=== PATIENT | male | born 1975 | race African-American/Black ===

== ENCOUNTER 2018-11-30 16:09 | Inpatient (IN) | payer OTHER ==
[2018-11-30 19:46] VITALS: BMI 33.3
--- NOTE | 2018-11-30 20:55 | HP ---
COWS - Scale Resting Pulse: 1= [place] 81-100 Sweatin=Flushed/Facial Moisture Restless Observation: 1= Difficult to Sit Still Pupil Size: 0= Normal to Room Light Bone or Joint Aches: 4=Acute Joint/Muscle Pain Runny Nose/ Eye Tearin= None GI Upset > 30mins: 2= Nausea/Diarrhea (diarrhea x 2) Tremor Observation: 2= Slight Tremor Visible Yawning Observation: 1= 1-2x During Session Anxiety or Irritability: 4=Extreme Anxiety Goose Flesh Skin: 0=Smooth Skin COWS Score: 17 CIWA Score - Admission Criteria OASAS Guidelines: Admission for Medically Managed Detox: Requires at least one of the followin. CIWA greater than 12 2. Seizures within the past 24 hours 3. Delirium tremens within the past 24 hours 4. Hallucinations within the past 24 hours 5. Acute intervention needed for co occurring medical disorder 6. Acute intervention needed for co occurring psychiatric disorder 7. Severe withdrawal that cannot be handled at a lower level of care (continued vomiting, continued diarrhea, abnormal vital signs) requiring intravenous medication and/or fluids 8. Admission ROS [facility] Chief Complaint: Heroin withdrawal symptoms Allergies/Adverse Reactions: Allergies Allergy/AdvReac Type Severity Reaction Status Date / Time shellfish derived AdvReac Severe severe Verified 11/30/18 19:32 History of Present Illness: 43 years old male with 3 years history of heroin dependence is seeking admission to detox. Patient has been in previous detox, last at [facility]. This is his first admission and first detox at [facility]. He has medical history of HIV +, asthma, depression and anxiety. He denies suicide attempt and suicidal ideation at this time. Exam Limitations: No Limitations - Ebola screening Have you traveled outside of the country in the last 21 days: No Have you had contact with anyone from an Ebola affected area: No Have you been sick,other than usual withdrawal symptoms: No Do you have a fever: No - Review of Systems Constitutional: Chills, Malaise, Night Sweats, Changes in sleep, Weakness, Unintentional Wgt. Loss (lost 23 pounds in a month) EENT: reports: Nose Congestion Respiratory: reports: No Symptoms reported Cardiac: reports: No Symptoms Reported GI: reports: Diarrhea, Poor Appetite, Poor Fluid Intake, Abdominal cramping : reports: No Symptoms Reported Musculoskeletal: reports: Back Pain, Joint Pain Integumentary: reports: Dryness, Flushing Neuro: reports: Tremors Endocrine: reports: No Symptoms Reported Hematology: reports: No Symptoms Reported Psychiatric: reports: Mood/Affect Appropiate, Anxious Other Systems: Reviewed and Negative Patient History - Patient Medical History Hx Anemia: No Hx Asthma: Yes (Albuterol and Advair) Hx Chronic Obstructive Pulmonary Disease (COPD): No Hx Cancer: No Hx Cardiac Disorders: No Hx Congestive Heart Failure: No Hx Hypertension: No Hx Hypercholesterolemia: No Hx Pacemaker: No HX Cerebrovascular Accident: No Hx Seizures: No Hx Dementia: No Hx Diabetes: No Hx Gastrointestinal Disorders: No Hx Liver Disease: No Hx Genitourinary Disorders: No Hx Sexually Transmitted Disorders: No Hx Renal Disease (ESRD): No Hx Thyroid Disease: No Hx Human Immunodeficiency Virus (HIV): Yes Hx Hepatitis C: No Hx Depression: Yes Hx Suicide Attempt: No (Denies suicidal ideation at ths time) Hx Bipolar Disorder: Yes (Buspar and Remeron) Hx Schizophrenia: No - Patient Surgical History Past Surgical History: Yes Hx Neurologic Surgery: No Hx Cataract Extraction: No Hx Cardiac Surgery: No Hx Lung Surgery: No Hx Abdominal Surgery: No Hx Appendectomy: No Hx Cholecystectomy: No Hx Genitourinary Surgery: No Hx Orthopedic Surgery: Yes (Left leg surgery) Anesthesia Reaction: No - PPD History Previous Implant?: No Documented Results: Positive w/o proof Implanted On Prior [facility] Admission?: No PPD to be Administered?: No - Reproductive History Patient is a Female of Child Bearing Age (11 -55 yrs old): No (Male) - Smoking Cessation Smoking history: Current every day smoker Have you smoked in the past 12 months: Yes Aproximately how many cigarettes per day: 20 Hx Chewing Tobacco Use: No Initiated information on smoking cessation: Yes 'Breaking Loose' booklet given: 11/30/18 - Substances abused Heroin Substance route: Inhalation Frequency: Daily Amount used: $30 Age of first use: 40 Date of last use: 11/28/18 Cocaine Substance route: Smoking Frequency: Daily Amount used: $200 Age of first use: 19 Date of last use: 11/28/18 Family Disease History - Family Disease History Family History: Denies Admission Physical Exam BHS - Vital Signs Vital Signs: Vital Signs - 24 hr 11/30/18 19:43 Temperature 98.9 F Pulse Rate 88 Respiratory 16 Rate Blood Pressure 144/77 - Physical General Appearance: Yes: Moderate Distress, Tremorous, Irritable, Sweating, Anxious HEENTM: Yes: Normal ENT Inspection, Normal Voice Respiratory: Yes: Lungs Clear, Normal Breath Sounds, No Respiratory Distress Neck: Yes: Supple Breast: Yes: Breast Exam Deferred Cardiology: Yes: Regular Rhythm, Regular Rate Abdominal: Yes: Normal Bowel Sounds Genitourinary: Yes: Within Normal Limits Back: Yes: Normal Inspection Musculoskeletal: Yes: Back pain, Muscle Pain Extremities: Yes: Tremors Neurological: Yes: Alert, Normal Mood/Affect Integumentary: Yes: Normal Color Lymphatic: Yes: Within Normal Limits - Diagnostic (1) Opioid dependence with withdrawal Current Visit: Yes Status: Acute (2) Nicotine dependence Current Visit: Yes Status: Chronic Qualifiers: Nicotine product type: cigarettes Substance use status: uncomplicated Qualified Code(s): F17.210 - Nicotine dependence, cigarettes, uncomplicated (3) HIV (human immunodeficiency virus infection) Current Visit: Yes Status: Acute (4) Depression Current Visit: Yes Status: Chronic Qualifiers: Depression Type: unspecified Qualified Code(s): F32.9 - Major depressive disorder, single episode, unspecified (5) Anxiety Current Visit: Yes Status: Chronic (6) Asthma Current Visit: Yes Status: Acute Qualifiers: Asthma severity: moderate Asthma persistence: persistent Asthma complication type: with acute exacerbation Qualified Code(s): J45.41 - Moderate persistent asthma with (acute) exacerbation Cleared for Admission S - Detox or Rehab [facility] Level of Care: Medically Managed Detox Regimen/Protocol: Methadone Inpatient Rehab Admission - Rehab Decision to Admit Inpatient rehab admission?: No
[2018-11-30] MEDS ORDERED: IBUPROFEN 400 MG TABLET (FP) PO PRN (21:12)
[2018-11-30] MEDS ORDERED: MENTHOL/PHENOL 1 EACH UD MM PRN (21:12)
[2018-11-30] MEDS ORDERED: MAG HYDROX/AL HYDROX/SIMETH 30 ML UNIT-DOSE CUP PO PRN (21:12)
[2018-11-30] MEDS ORDERED: NICOTINE POLACRILEX 2 MG GUM BUC PRN (21:12)
[2018-11-30] MEDS ORDERED: MELATONIN 5 MG TABLETS PO PRN (21:12)
[2018-11-30] MEDS ORDERED: cloNIDine HCL 0.1 MG TABLET PO PRN (21:12)
[2018-11-30] MEDS ORDERED: MAGNESIUM HYDROX 2400MG/30ML ORAL SUSPENSION 30 ML CUP PO PRN (21:12)
[2018-11-30] MEDS ORDERED: BISMUTH SUBSALICYLATE 524 MG/30 ML UD PO PRN (21:12)
[2018-11-30] MEDS ORDERED: MAGNESIUM CITRATE 300 ML BOTTLE PO PRN (21:12)
[2018-11-30] MEDS ORDERED: ACETAMINOPHEN 325 MG TABLET (FP) PO PRN ×2 (21:12)
[2018-11-30] MEDS ORDERED: ALBUTEROL SO4 8 GM HFA INHALER IH SCH (21:30)
[2018-11-30] MEDS: THIAMINE HCL 100 MG TABLET (FP) PO SCH (22:06)
[2018-11-30] MEDS: hydrOXYzine PAMOATE 25 MG CAPSULE (FP) PO PRN (22:07)
[2018-11-30] MEDS ORDERED: METHADONE HCL 10 MG TABLET (FOR DETOX USE ONLY) PO ONE (23:00)
--- NOTE | 2018-12-01 08:25 | EKG ---
Test Reason : Blood Pressure : / mmHG Vent. Rate : 069 BPM Atrial Rate : 069 BPM P-R Int : 150 ms QRS Dur : 090 ms QT Int : 374 ms P-R-T Axes : 033 051 025 degrees QTc Int : 400 ms NORMAL SINUS RHYTHM MODERATE VOLTAGE CRITERIA FOR LVH, MAY BE NORMAL VARIANT BORDERLINE ECG NO PREVIOUS ECGS AVAILABLE Confirmed by LUCY CAMPOVERDE MD ([id number]) on 12/01/2018 8:25:32 AM Referred By: Confirmed By:LUCY CAMPOVERDE MD
[2018-12-01] MEDS: PRENATAL VITAMINS W/ FOLIC ACID TABLET (FP) PO SCH (09:55)
[2018-12-01] MEDS: hydrOXYzine PAMOATE 25 MG CAPSULE (FP) PO PRN ×2 (09:55→22:09)
[2018-12-01] MEDS: NICOTINE 14 MG/24 HOURS TOPICAL PATCH TD SCH (09:56)
[2018-12-01] MEDS ORDERED: METHADONE HCL 10 MG TABLET (FOR DETOX USE ONLY) PO ONE (10:00)
--- NOTE | 2018-12-01 10:28 | PN ---
BHS COWS - Scale Resting Pulse: 1= [place] 81-100 Sweatin= Chills/Flushing Restless Observation: 1= Difficult to Sit Still Pupil Size: 1= Pupils >than Normal Bone or Joint Aches: 2= Severe Diffuse Aches Runny Nose/ Eye Tearin= Nasal Congestion GI Upset > 30mins: 1= Stomach Cramp Tremor Observation of Outstretched Hands: 1= Tremor [place], Not Seen Yawning Observation: 1= 1-2x During Session Anxiety or Irritability: 1=Feels Anxious/Irritable Goose Flesh Skin: 3=Piloe[place] COWS Score: 14 BHS Progress Note (SOAP) Subjective: doing ok with methadone detox protocol resting on bed tired tolerate food and fluid well Objective: 12/01/18 10:28 Vital Signs Temperature 98.1 F 12/01/18 10:00 Pulse Rate 90 12/01/18 10:00 Respiratory Rate 20 12/01/18 10:00 Blood Pressure 124/68 12/01/18 10:00 O2 Sat by Pulse Oximetry (%) 12/01/18 10:29 lab pending Assessment: 12/01/18 10:29 opiate withdrawal sx Plan: continue detox
[2018-12-01] MEDS ORDERED: ALBUTEROL SO4 0.083% IH SOL 2.5 MG/3 ML VIAL.NEB. NEB ONE (12:20)
[2018-12-01 12:45] LABS: HEMATOCRIT 38.4 % (35.4-49); HEMOGLOBIN 12.6 GM/dL (11.7-16.9); MCH 29.1 pg (25.7-33.7); MCHC 32.9 g/dl (32.0-35.9); MEAN CELL VOLUME 88.5 fl (80-96); MEAN PLT VOLUME 8.6 fl (7.5-11.1); PLATELET COUNT 219 K/MM3 (134-434); RBC 4.34 M/mm3 (4.00-5.60); RDW 14.6 % (11.9-15.9); WHITE BLOOD COUNT 8.5 K/mm3 (4.0-10.0)
[2018-12-01 12:48] LABS: ALBUMIN 3.1 g/dl (3.4-5.0); ALK PHOS 67 U/L (45-117); ANION GAP 7 MMOL/L (8-16); BILIRUBIN,TOTAL 0.6 mg/dL (0.2-1); BLOOD UREA NITROGEN 10 mg/dL (7-18); CHLORIDE 107 mmol/L (98-107); CO2 27 mmol/L (21-32); CREATININE 1.1 mg/dL (0.55-1.3); GLUCOSE,RANDOM 93 mg/dL (74-106); POTASSIUM 3.6 mmol/L (3.5-5.1); SGOT/AST 14 U/L (15-37); SGPT/ALT 28 U/L (13-61); SODIUM 141 mmol/L (136-145); TOT PROT 6.4 g/dl (6.4-8.2)
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
[2018-12-01] MEDS: THIAMINE HCL 100 MG TABLET (FP) PO SCH (22:09)
[2018-12-02] MEDS ORDERED: METHADONE HCL 10 MG TABLET (FOR DETOX USE ONLY) PO ONE (10:00)
[2018-12-02] MEDS: NICOTINE 14 MG/24 HOURS TOPICAL PATCH TD SCH (10:37)
[2018-12-02] MEDS: PRENATAL VITAMINS W/ FOLIC ACID TABLET (FP) PO SCH (10:37)
--- NOTE | 2018-12-02 11:14 | PN ---
BHS COWS - Scale Resting Pulse: 1= [place] 81-100 Sweatin= Chills/Flushing Restless Observation: 1= Difficult to Sit Still Pupil Size: 0= Normal to Room Light Bone or Joint Aches: 1= Mild Discomfort Runny Nose/ Eye Tearin= Nasal Congestion GI Upset > 30mins: 1= Stomach Cramp Tremor Observation of Outstretched Hands: 2= Slight Tremor Visible Yawning Observation: 1= 1-2x During Session Anxiety or Irritability: 1=Feels Anxious/Irritable Goose Flesh Skin: 0=Smooth Skin COWS Score: 10 S Progress Note (SOAP) Subjective: doing well with methadone detox regimen discuss medication assisted maintenance treatment program Objective: 12/02/18 11:14 Vital Signs Temperature 98.0 F 12/02/18 09:11 Pulse Rate 87 12/02/18 09:11 Respiratory Rate 20 12/02/18 09:11 Blood Pressure 103/63 12/02/18 09:11 O2 Sat by Pulse Oximetry (%) Laboratory Last Values WBC 8.5 K/mm3 (4.0-10.0) 12/01/18 07:30 RBC 4.34 M/mm3 (4.00-5.60) 12/01/18 07:30 Hgb 12.6 GM/dL (11.7-16.9) 12/01/18 07:30 Hct 38.4 % (35.4-49) 12/01/18 07:30 MCV 88.5 fl (80-96) 12/01/18 07:30 MCH 29.1 pg (25.7-33.7) 12/01/18 07:30 MCHC 32.9 g/dl (32.0-35.9) 12/01/18 07:30 RDW 14.6 % (11.9-15.9) 12/01/18 07:30 Plt Count 219 K/MM3 (134-434) 12/01/18 07:30 MPV 8.6 fl (7.5-11.1) 12/01/18 07:30 Sodium 141 mmol/L (136-145) 12/01/18 07:30 Potassium 3.6 mmol/L (3.5-5.1) 12/01/18 07:30 Chloride 107 mmol/L (98-107) 12/01/18 07:30 Carbon Dioxide 27 mmol/L (21-32) 12/01/18 07:30 Anion Gap 7 MMOL/L (8-16) L 12/01/18 07:30 BUN 10 mg/dL (7-18) 12/01/18 07:30 Creatinine 1.1 mg/dL (0.55-1.3) 12/01/18 07:30 Creat Clearance w eGFR 73.06 (>60) 12/01/18 07:30 Random Glucose 93 mg/dL (74-106) 12/01/18 07:30 Calcium 9.0 mg/dL (8.5-10.1) 12/01/18 07:30 Total Bilirubin 0.6 mg/dL (0.2-1) 12/01/18 07:30 AST 14 U/L (15-37) L 12/01/18 07:30 ALT 28 U/L (13-61) 12/01/18 07:30 Alkaline Phosphatase 67 U/L (45-117) 12/01/18 07:30 Total Protein 6.4 g/dl (6.4-8.2) 12/01/18 07:30 Albumin 3.1 g/dl (3.4-5.0) L 12/01/18 07:30 RPR Titer Nonreactive (NONREACTIVE) 12/01/18 07:30 lab noted Assessment: 12/02/18 11:14 opiate withdrawal sx Plan: continue detox
[2018-12-02] MEDS: hydrOXYzine PAMOATE 25 MG CAPSULE (FP) PO PRN (22:12)
[2018-12-02] MEDS: THIAMINE HCL 100 MG TABLET (FP) PO SCH (22:13)
[2018-12-02] MEDS: METHOCARBAMOL 500 MG TABLET PO PRN (22:13)
[2018-12-03] MEDS ORDERED: METHADONE HCL 10 MG TABLET (FOR DETOX USE ONLY) PO ONE (10:00)
[2018-12-03] MEDS: PRENATAL VITAMINS W/ FOLIC ACID TABLET (FP) PO SCH (10:40)
[2018-12-03] MEDS: METHOCARBAMOL 500 MG TABLET PO PRN (10:40)
[2018-12-03] MEDS: NICOTINE 14 MG/24 HOURS TOPICAL PATCH TD SCH (10:40)
--- NOTE | 2018-12-03 16:12 | PN ---
BHS COWS - Scale Resting Pulse: 2= [place] 101-120 Sweatin= Chills/Flushing Restless Observation: 1= Difficult to Sit Still Pupil Size: 0= Normal to Room Light Bone or Joint Aches: 1= Mild Discomfort Runny Nose/ Eye Tearin= None GI Upset > 30mins: 0= None Tremor Observation of Outstretched Hands: 0= None Yawning Observation: 1= 1-2x During Session Anxiety or Irritability: 2=Irritable/Anxious Goose Flesh Skin: 0=Smooth Skin COWS Score: 8 BHS Progress Note (SOAP) Subjective: Body Aches, Sweating, Interrupted Sleep. Patient reports that Withdrawal / Detox Symptoms are subsiding in severity in comparison to time in which he was admitted to Detox Unit. Objective: PATIENT A & O X 3, OBSERVED AMBULATING ON UNIT UNASSISTED. IN NO ACUTE DISTRESS. 12/03/18 16:13 Vital Signs Temperature 97.1 F L 12/03/18 13:49 Pulse Rate 105 H 12/03/18 13:49 Respiratory Rate 18 12/03/18 13:49 Blood Pressure 121/73 12/03/18 13:49 O2 Sat by Pulse Oximetry (%) Laboratory Tests 12/01/18 12/01/18 12/01/18 07:30 07:30 07:30 WBC 8.5 RBC 4.34 Hgb 12.6 Hct 38.4 MCV 88.5 MCH 29.1 MCHC 32.9 RDW 14.6 Plt Count 219 MPV 8.6 Sodium 141 Potassium 3.6 Chloride 107 Carbon Dioxide 27 Anion Gap 7 L BUN 10 Creatinine 1.1 Creat Clearance w eGFR 73.06 Random Glucose 93 Calcium 9.0 Total Bilirubin 0.6 AST 14 L ALT 28 Alkaline Phosphatase 67 Total Protein 6.4 Albumin 3.1 L RPR Titer Nonreactive LABS NOTED. Assessment: 12/03/18 16:14 WITHDRAWAL SYMPTOMS. Plan: CONTINUE DETOX. PATIENT SCHEDULED FOR D/C TOMORROW.
[2018-12-03] MEDS: hydrOXYzine PAMOATE 25 MG CAPSULE (FP) PO PRN (22:22)
[2018-12-03] MEDS: THIAMINE HCL 100 MG TABLET (FP) PO SCH (22:22)
[2018-12-04] MEDS ORDERED: METHADONE HCL 5 MG TABLET (FOR DETOX USE ONLY) PO ONE (06:00)
[2018-12-04] MEDS: NICOTINE 14 MG/24 HOURS TOPICAL PATCH TD SCH (10:49)
[2018-12-04] MEDS: PRENATAL VITAMINS W/ FOLIC ACID TABLET (FP) PO SCH (10:49)
[2018-12-04 11:10] VITALS: BP 112/52; PULSE 109; TEMP 98.4
--- NOTE | 2018-12-04 13:59 | DS ---
[facility] Detox Discharge Summary Admission Date: 11/30/18 Discharge Date: 12/04/18 - History Present History: Cocaine Dependence, Opioid Dependence Additional Comments: PATIENT GOING TO [facility] ([place]) FOR AFTERCARE. PATIENT WAS DISCHARGED FROM DETOX UNIT TO BE TAKEN OVER TO REHAB UNIT IN STABLE MEDICAL CONDITION Pertinent Past History: Asthma, Nicotine Dependence, H.I.V., Depression, Anxiety, Bipolar Disorder. - Physical Exam Results Vital Signs: Vital Signs Temperature 98.4 F 12/04/18 11:09 Pulse Rate 109 H 12/04/18 11:09 Respiratory Rate 20 12/04/18 11:09 Blood Pressure 112/52 L 12/04/18 11:09 O2 Sat by Pulse Oximetry (%) Pertinent Admission Physical Exam Findings: WITHDRAWAL SYMPTOMS. Laboratory Tests 12/01/18 12/01/18 12/01/18 07:30 07:30 07:30 WBC 8.5 RBC 4.34 Hgb 12.6 Hct 38.4 MCV 88.5 MCH 29.1 MCHC 32.9 RDW 14.6 Plt Count 219 MPV 8.6 Sodium 141 Potassium 3.6 Chloride 107 Carbon Dioxide 27 Anion Gap 7 L BUN 10 Creatinine 1.1 Creat Clearance w eGFR 73.06 Random Glucose 93 Calcium 9.0 Total Bilirubin 0.6 AST 14 L ALT 28 Alkaline Phosphatase 67 Total Protein 6.4 Albumin 3.1 L RPR Titer Nonreactive LABS NOTED. - Treatment Hospital Course: Detox Protocol Followed, Detoxed Safely, Responded well, Discharged Condition Good, Rehab Referral Accepted Patient has Accepted a Rehab Referral to: [facility] ([place], [place]). - Medication Discharge Medications: Ambulatory Orders Albuterol Sulfate [Proair Hfa] 2 inh IH PRN 11/30/18 Buspirone HCl [Buspar -] 30 mg PO BID 11/30/18 Genvoya (Non-Formulary) 1 each PO DAILY 11/30/18 Mirtazapine [Remeron -] 30 mg PO HS 11/30/18 - Diagnosis (1) Asthma Status: Acute Qualifiers: Asthma severity: moderate Asthma persistence: persistent Asthma complication type: with acute exacerbation Qualified Code(s): J45.41 - Moderate persistent asthma with (acute) exacerbation (2) HIV (human immunodeficiency virus infection) Status: Chronic Qualifiers: HIV symptom status: unspecified Qualified Code(s): B20 - Human immunodeficiency virus [HIV] disease (3) Opioid dependence with withdrawal Status: Acute (4) Anxiety Status: Chronic (5) Depression Status: Chronic Qualifiers: Depression Type: unspecified Qualified Code(s): F32.9 - Major depressive disorder, single episode, unspecified (6) Nicotine dependence Status: Chronic Qualifiers: Nicotine product type: cigarettes Substance use status: uncomplicated Qualified Code(s): F17.210 - Nicotine dependence, cigarettes, uncomplicated (7) Cocaine dependence Status: Chronic Qualifiers: Substance use status: uncomplicated Qualified Code(s): F14.20 - Cocaine dependence, uncomplicated (8) History of anxiety disorder Status: Chronic - AMA Did Patient Leave Against Medical Advice: No
== END 2018-12-04 12:25 | disposition other institution (70) | DRG 774 ==
LOC: YASAS 16:09 → Y3N 21:36
PROVIDERS: ADMIT Surgery; ATTEND Surgery
PROC: HZ2ZZZZ Detoxification Services for Substance Abuse Treatment (ICD-10-PCS; principal; 2018-11-30)
DX: F10.230 Alcohol dependence with withdrawal, uncomplicated (principal); F14.20 Cocaine dependence, uncomplicated; F17.210 Nicotine dependence, cigarettes, uncomplicated; F41.9 Anxiety disorder, unspecified; F32.9 Major depressive disorder, single episode, unspecified; J45.41 Moderate persistent asthma with (acute) exacerbation; Z21 Asymptomatic human immunodeficiency virus [HIV] infection status; Z91.013 Allergy to seafood; Z59.0 Homelessness
CPT/HCPCS: 36415; 71046-TC-FY; 80053; 85027; 86593; 93005; 93010

== ENCOUNTER 2018-12-04 09:29 | Inpatient (IN) | payer OTHER ==
[2018-12-04] MEDS ORDERED: MAGNESIUM HYDROX 2400MG/30ML ORAL SUSPENSION 30 ML CUP PO PRN (14:01)
[2018-12-04] MEDS ORDERED: P-EPHED 60MG/TRIPROLIDI 2.5MG TABLET PO PRN (14:01)
[2018-12-04] MEDS ORDERED: MAGNESIUM CITRATE 300 ML BOTTLE PO PRN (14:01)
[2018-12-04] MEDS ORDERED: MAG HYDROX/AL HYDROX/SIMETH 30 ML UNIT-DOSE CUP PO PRN (14:01)
[2018-12-04] MEDS ORDERED: IBUPROFEN 400 MG TABLET (FP) PO PRN (14:01)
[2018-12-04] MEDS ORDERED: LOPERAMIDE HCL 2 MG CAPSULE PO PRN (14:01)
[2018-12-04] MEDS ORDERED: guaiFENesin 200 MG/10 ML 10 ML UNIT-DOSE CUPS PO PRN (14:01)
[2018-12-04] MEDS ORDERED: ACETAMINOPHEN 325 MG TABLET (FP) PO PRN (14:01)
[2018-12-04] MEDS ORDERED: MENTHOL/PHENOL 1 EACH UD MM PRN (14:01)
[2018-12-04] MEDS ORDERED: NICOTINE POLACRILEX 2 MG GUM BUC PRN (14:01)
--- NOTE | 2018-12-04 14:01 | HP ---
[facility] Rehab Assess/Revision - Admission History Admitted to Rehab from: [facility] Date of Admission to Rehab: 12/04/2018 - Vital signs Vital Signs: Vital Signs Period Temp Pulse Resp BP Sys/Locke Pulse Ox Last 24 Hr 97.8 F 95 18 124/69 - Findings Detox History & Physical reviewed: Yes Concur with findings: Yes Comments/Additional Findings: PATIENT'S MEDICAL / MEDICATION HISTORY REVIEWED PRIOR TO DISCHARGE FROM DETOX UNIT. PATIENT WAS DISCHARGED FROM DETOX UNIT TO BE TAKEN OVER TO REHAB UNIT IN STABLE MEDICAL CONDITION. Inpatient Rehab Admission - Rehab Decision to Admit Inpatient rehab admission?: Yes - Initial Determination Are CD services needed?: Yes Free of communicable disease: Yes Not in need of hospitalization: Yes - Rehab Admission Criteria Previous failed treatment: Yes Poor recovery environment: Yes Comorbidities: Yes Lacks judgement: No Patient is meeting Inpatient Rehab admission criteria:: Yes
[2018-12-04] MEDS: THIAMINE HCL 100 MG TABLET (FP) PO SCH (21:33)
[2018-12-05] MEDS: PRENATAL VITAMINS W/ FOLIC ACID TABLET (FP) PO SCH (09:50)
[2018-12-05] MEDS: NICOTINE 14 MG/24 HOURS TOPICAL PATCH TD SCH (09:50)
[2018-12-05] MEDS: ALBUTEROL SO4 8 GM HFA INHALER IH PRN (13:05)
[2018-12-05] MEDS: THIAMINE HCL 100 MG TABLET (FP) PO SCH (22:19)
[2018-12-06] MEDS: NICOTINE 14 MG/24 HOURS TOPICAL PATCH TD SCH (10:25)
[2018-12-06] MEDS: PRENATAL VITAMINS W/ FOLIC ACID TABLET (FP) PO SCH (10:25)
[2018-12-06] MEDS: ALBUTEROL SO4 8 GM HFA INHALER IH PRN (12:32)
[2018-12-06] MEDS ORDERED: PT OWN MED DRAWER 7, Y5N ONE (15:54)
--- NOTE | 2018-12-06 16:04 | PN ---
[facility] Progress Note Note: PATIENT C/O FEELING ANXIOUS, NAUSEOUS AND RESTLESSNESS. PATIENT DENIES VOMITING AND DIARRHEA. PMH INCLUDES HIV+, ASTHMA AND ANXIETY/DEPRESSION. PATIENT REPORTS COMPLIANCE WITH ALL MEDICATIONS AND DOES NOT UNDERSTAND WHY HIS MEDICATION HAS NOT BEEN ORDERED. PATIENT REPORTED PHARMAC[facility] AND MEDICATION THEREFORE NOT VERIFIED. Vital Signs Temperature 99.3 F 12/06/18 07:18 Pulse Rate 89 12/06/18 07:18 Respiratory Rate 18 12/06/18 07:18 Blood Pressure 131/67 12/06/18 07:18 O2 Sat by Pulse Oximetry (%) PE: ALERT AND ORIENTED X 3 SKIN WARM AND DRY +PERRLA, EOMS INTACT BL GI SOFT, BS+,NT EXT FULL ROM, AMB AD [place] ANXIOUS A/P: HX OF ANXIETY/DEPRESSION NAUSEA HIV + PHARMACY [facility] CALLED AT 718 CONFIRMED ALL MEDICATIONS: GENVOYA ONE TAB DAILY, DEPAKOTE 750MG HS, REMERON 30MG HS AND BUSPAR 30MG BID. PHARMACY REPORTS PATIENT RECEIVES MEDICATION MONTHLY. WILL ORDER GENVOYA ONE TAB DAILY ZOFRAN FOR NAUSEA VPA LEVEL IN AM REMERON 30MG HS BUSPAR 30MG ONCE UNTIL PSYCH EVALUATION IN AM [facility]
[2018-12-06] MEDS: ONDANSETRON *ODT* 4 MG TABLET SL PRN (18:07)
--- NOTE | 2018-12-06 18:51 | PN ---
[facility] Progress [facility] Note: Patient pharmacy states send HIV meds. Patient did not bring in current HIV meds and there is no evidence that indicates compliance. Will hold HIV meds and have patient f/u w/ PCP at discharge .
[2018-12-06] MEDS: THIAMINE HCL 100 MG TABLET (FP) PO SCH (21:26)
[2018-12-06] MEDS: MIRTAZAPINE 30 MG TABLET (FP) PO SCH (21:27)
[2018-12-06] MEDS: MELATONIN 5 MG TABLETS PO PRN (21:28)
[2018-12-07] MEDS ORDERED: ELVITEG/COB/EMTRI/TENOFO (STRIBILD) TABLET -NF PO SCH (10:00)
[2018-12-07] MEDS: PRENATAL VITAMINS W/ FOLIC ACID TABLET (FP) PO SCH (10:31)
[2018-12-07] MEDS: NICOTINE 14 MG/24 HOURS TOPICAL PATCH TD SCH (10:31)
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
[2018-12-07] MEDS: ONDANSETRON *ODT* 4 MG TABLET SL PRN (16:25)
[2018-12-07] MEDS: THIAMINE HCL 100 MG TABLET (FP) PO SCH (21:22)
[2018-12-07] MEDS: DIVALPROEX 250 MG, DIVALPROEX 500 MG PO SCH (21:23)
[2018-12-07] MEDS: MIRTAZAPINE 30 MG TABLET (FP) PO SCH (21:23)
[2018-12-07] MEDS ORDERED: DIVALPROEX SODIUM 250 MG TABLET E.C. PO SCH (22:00)
[2018-12-07] MEDS: ALBUTEROL SO4 8 GM HFA INHALER IH PRN (23:27)
[2018-12-08] MEDS: PRENATAL VITAMINS W/ FOLIC ACID TABLET (FP) PO SCH (09:53)
[2018-12-08] MEDS: NICOTINE 14 MG/24 HOURS TOPICAL PATCH TD SCH (09:54)
[2018-12-08] MEDS: ELVITEG/COB/EMTRI/TENOFO (STRIBILD) TABLET -NF PO SCH (09:55)
[2018-12-08] MEDS ORDERED: PT OWN MED DRAWER 7, Y5N ONE (09:56)
[2018-12-08] MEDS: ALBUTEROL SO4 8 GM HFA INHALER IH PRN ×2 (16:54→23:12)
[2018-12-08] MEDS ORDERED: DIVALPROEX SODIUM 500 MG TABLET E.C. ONE (19:25)
[2018-12-08] MEDS ORDERED: DIVALPROEX SODIUM 250 MG TABLET E.C. ONE (19:25)
[2018-12-08] MEDS: DIVALPROEX 250 MG, DIVALPROEX 500 MG PO SCH (21:44)
[2018-12-08] MEDS: THIAMINE HCL 100 MG TABLET (FP) PO SCH (21:44)
[2018-12-08] MEDS: MIRTAZAPINE 30 MG TABLET (FP) PO SCH (21:44)
[2018-12-09] MEDS: NICOTINE 14 MG/24 HOURS TOPICAL PATCH TD SCH (10:17)
[2018-12-09] MEDS: PRENATAL VITAMINS W/ FOLIC ACID TABLET (FP) PO SCH (10:17)
[2018-12-09] MEDS: ELVITEG/COB/EMTRI/TENOFO (STRIBILD) TABLET -NF PO SCH (10:18)
[2018-12-09] MEDS ORDERED: PT OWN MED DRAWER 7, Y5N ONE ×2 (10:19→14:19)
[2018-12-09] MEDS ORDERED: DIVALPROEX SODIUM 500 MG TABLET E.C. ONE (20:31)
[2018-12-09] MEDS ORDERED: DIVALPROEX SODIUM 250 MG TABLET E.C. ONE (20:32)
[2018-12-09] MEDS: DIVALPROEX 250 MG, DIVALPROEX 500 MG PO SCH (21:03)
[2018-12-09] MEDS: MIRTAZAPINE 30 MG TABLET (FP) PO SCH (21:03)
[2018-12-09] MEDS: THIAMINE HCL 100 MG TABLET (FP) PO SCH (21:03)
[2018-12-09] MEDS: ALBUTEROL SO4 8 GM HFA INHALER IH PRN (21:29)
[2018-12-09] MEDS: MELATONIN 5 MG TABLETS PO PRN (23:12)
[2018-12-10 07:12] VITALS: BP 114/81; PULSE 99; TEMP 98.3
[2018-12-10] MEDS ORDERED: PT OWN MED DRAWER 7, Y5N ONE ×2 (08:44→10:30)
[2018-12-10] MEDS: ELVITEG/COB/EMTRI/TENOFO (STRIBILD) TABLET -NF PO SCH (10:09)
[2018-12-10] MEDS: PRENATAL VITAMINS W/ FOLIC ACID TABLET (FP) PO SCH (10:09)
[2018-12-10] MEDS: ALBUTEROL SO4 8 GM HFA INHALER IH PRN (10:10)
[2018-12-10] MEDS: NICOTINE 14 MG/24 HOURS TOPICAL PATCH TD SCH (10:10)
--- NOTE | 2018-12-10 10:32 | PN ---
[facility] Progress Note Note: Notified by nursing staff Patient requested to sign out AMA. Patient states he does not feel this rehab program is a good fit for him and would like to try [facility]. Patient encouraged to stay in treatment and asked if there was anything we could adjust or accommodate to help him stay in treatment but patient refused. Patient medically stable at this time and denies SI/HI. Patient state he has psychiatric medications in belongings but needs refill of HIV medication. Patient encouraged to continue with group meetings to prevent relapse and to follow up with PCP to continue medical management. Vital Signs Temperature 98.3 F 12/10/18 07:11 Pulse Rate 99 H 12/10/18 07:11 Respiratory Rate 20 12/10/18 07:11 Blood Pressure 114/81 12/10/18 07:11 O2 Sat by Pulse Oximetry (%) Vital Signs Temperature 98.3 F 12/10/18 07:11 Pulse Rate 99 H 12/10/18 07:11 Respiratory Rate 20 12/10/18 07:11 Blood Pressure 114/81 12/10/18 07:11 O2 Sat by Pulse Oximetry (%) Laboratory Tests 12/07/18 09:00 Valproic Acid 5.4 L Home Medications Medication Instructions Recorded Albuterol Sulfate [Proair Hfa] 2 inh IH PRN 11/30/18 Buspirone HCl [Buspar -] 30 mg PO BID 11/30/18 Genvoya (Non-Formulary) 1 each PO DAILY 11/30/18 Mirtazapine [Remeron -] 30 mg PO HS 11/30/18 Elviteg/Cob/Emtri/Tenof Alafen 1 each PO DAILY #30 tablet 12/10/18 [Genvoya (Non-Formulary)]
== END 2018-12-10 10:50 | disposition home or self-care (01) | DRG 772 ==
LOC: YASAS 09:29 → Y3W 09:31
PROVIDERS: ADMIT Neuromusculoskeletal Medicine & OMM; ATTEND Neuromusculoskeletal Medicine & OMM
PROC: HZ42ZZZ Group Counseling for Substance Abuse Treatment, Cognitive-Behavioral (ICD-10-PCS; principal; 2018-12-04)
DX: F11.20 Opioid dependence, uncomplicated (principal); F14.20 Cocaine dependence, uncomplicated; F17.210 Nicotine dependence, cigarettes, uncomplicated; F43.10 Post-traumatic stress disorder, unspecified; F29 Unspecified psychosis not due to a substance or known physiological condition; F31.9 Bipolar disorder, unspecified; J45.41 Moderate persistent asthma with (acute) exacerbation; Z21 Asymptomatic human immunodeficiency virus [HIV] infection status; R11.0 Nausea; Z91.013 Allergy to seafood; Z59.0 Homelessness
CPT/HCPCS: 36415; 80164; Q0162